=== PATIENT | male | born 1955 | race Caucasian/White ===

== ENCOUNTER 2019-09-21 07:27 | Outpatient (CLI) | payer MEDICAID, SELFPAY ==
--- NOTE | 2019-09-21 08:45 | USCV_ITS ---
Eugene Gutierrez Age: 63 Gender: M : 1955 Exam Date: 09/21/2019 07:56 Ordering Phys: Perla Hickey MD Technologist: Camilla Charles Exam Location: [facility] [place] Indication: SOB BP: 140 / 81 HR: 60 Rhythm: Sinus Technical Quality: Poor MEASUREMENTS (Male / Female) Normal Values 2D ECHO LV Diastolic Diameter PLAX 5.9 cm 4.2 - 5.9 / 3.9 - 5.3 cm LV Systolic Diameter PLAX 5.1 cm LV Chamber Size 7.3 cm IVS Diastolic Thickness 1.8 cm 0.6 - 1.0 / 0.6 - 0.9 cm IVS Systolic Thickness 1.8 cm LVPW Diastolic Thickness 1.0 cm 0.6 - 1.0 / 0.6 - 0.9 cm LVPW Systolic Thickness 1.3 cm RV Chamber Size 4.3 cm LVOT Diameter 2.0 cm LV Ejection Fraction 2D Teich 28.7 % LV Ejection Fraction MOD 2C -1.4 % LV Ejection Fraction 2C AL 6.2 % LA Diameter 6.5 cm LA Width 5.2 cm LA Height 7.8 cm RA Width 5.0 cm RA Height 6.1 cm Aorta at Sinotubular Diameter 3.3 cm M-MODE LV Diastolic Diameter MM 7.4 cm 4.2 - 5.9 / 3.9 - 5.3 cm LV Systolic Diameter MM 4.3 cm LV Ejection Fraction MM Teich 71.1 % IVS Diastolic Thickness MM 1.1 cm 0.6 - 1.0 / 0.6 - 0.9 cm IVS Systolic Thickness MM 1.6 cm LVPW Diastolic Thickness MM 0.9 cm 0.6 - 1.0 / 0.6 - 0.9 cm LVPW Systolic Thickness MM 1.2 cm RV Diastolic Diameter MM 2.7 cm Aortic Annulus Diameter 3.5 cm LA Ao Ratio MM 1.8 MV E Point Septal Separation 0.9 cm DOPPLER AV Peak Velocity 119.0 cm/s LVOT Peak Velocity 86.0 cm/s AV Area Cont Eq vti 2.1 cm squared AV Area Cont Eq pk 2.3 cm squared MV E' Velocity 12.0 cm/s TR Peak Velocity 212.8 cm/s TR Peak Gradient 18.1 mmHg TR Mean Velocity 166.6 cm/s TR Mean Gradient 11.6 mmHg TR Velocity Time Integral 75.7 cm TV Peak E Velocity 61.0 cm/s PV Peak Velocity 54.0 cm/s FINDINGS Left Ventricle The imaging is relatively poor. The ventricle appears to be mildly enlarged. There is no obvious evidence of left ventricular hypertrophy. There is global hypokinesis to a moderate degree. A rough estimate of the ejection fraction would be 35% or slightly higher. Grade 2 diastolic dysfunction. No obvious wall motion disturbances. Right Ventricle Normal right ventricular size and systolic function. Right Atrium Moderately increased right atrial size. Left Atrium Moderately increased left atrial size. Mitral Valve Structurally normal mitral valve. Mild-moderate mitral valve regurgitation. Aortic Valve Structurally normal trileaflet aortic valve. No aortic valve stenosis. Trace to mild aortic valve regurgitation. Tricuspid Valve Structurally normal tricuspid valve. Moderate tricuspid valve regurgitation. Pulmonic Valve Pulmonic valve not well visualized. [id number] pulmonary valve regurgitation. Pericardium Normal pericardium without effusion. Aorta Normal ascending aorta dimension. CONCLUSIONS The imaging is relatively poor. The ventricle appears to be mildly enlarged. There is no obvious evidence of left ventricular hypertrophy. There is global hypokinesis to a moderate degree. A rough estimate of the ejection fraction would be 35% or slightly higher. Grade 2 diastolic dysfunction. No obvious wall motion disturbances. Moderately increased right atrial size. Moderately increased left atrial size. Structurally normal mitral valve. Mild-moderate mitral valve regurgitation. Structurally normal trileaflet aortic valve. No aortic valve stenosis. Trace to mild aortic valve regurgitation. Comparison to the previous study is difficult due to the poor technical quality however the ejection fraction is probably slightly lower. Otherwise, there appears to be no change. The previous study was done 09/18/2017 Dr. Shahzad Beckman MD (Electronically Signed) Final Date: 21 September 2019 10:07 S
--- NOTE | 2019-09-21 13:23 | PFTS_ITS ---
Date of Study:09/21/19 Date of Dictation: MECHANICS: Forced vital capacity (FVC) is normal. Forced expiratory volume in one second (FEV1) is normal. FEV1/FVC is normal. FLOW VOLUME LOOP: Reduced flow at all lung volumes. LUNG VOLUMES: Total lung capacity (TLC) is normal. Residual volume (RV) is normal. DIFFUSING CAPACITY FOR CARBON MONOXIDE: Mildly reduced. INTERPRETATION: The pulmonary function tests are normal. There is no significant postbronchodilator response. Lung volumes are normal. Gas exchange (DLCO) is mildly reduced. MTDD
== END 2019-09-21 07:28 | disposition home or self-care (01) ==
LOC: US 07:28
PROVIDERS: PCP Family Medicine; Visit Provider Internal Medicine Critical Care Medicine
DX: R06.02 Shortness of breath (principal); J42 Unspecified chronic bronchitis; I08.0 Rheumatic disorders of both mitral and aortic valves
CPT/HCPCS: 93306; 94060; 94726; 94729; J7611

== ENCOUNTER 2019-11-08 17:04 | Emergency (ER) | payer MEDICAID, SELFPAY ==
[2019-11-08 17:17] VITALS: BMI 37.6
[2019-11-08 17:19] VITALS: BP 122/73; PULSE 46; RESP 16; TEMP 36.7; O2SAT 95
--- NOTE | 2019-11-08 17:27 | USCV_ITS ---
Eugene Gutierrez Age: 63 Gender: M : 1955 Exam Date: 11/08/2019 17:35 Ordering Phys: Patricia Toro DO Technologist: Iman Lazcano Exam Location: [facility] – [place], [place] Indication: SWOLLEN LT LOWER LEG HISTORY: Chronic swelling but now worse in lt lower leg PROCEDURES: Venous duplex imaging was performed in only the left lower extremity. The following venous structures were evaluated: common femoral vein, profunda vein, proximal portion of the greater saphenous vein, superficial femoral vein, and the popliteal vein. In addition, the posterior tibial and peroneal trunk were evaluated. Serial compression, augmentation maneuvers, and spectral Doppler flow evaluation were performed. FINDINGS: No DVT seen in any vessel examined CONCLUSIONS No evidence of DVT in the above-mentioned identifiable veins. Dr Jing Bueno MD [facility] (Electronically Signed) Final Date: 09 November 2019 08:41 S
== END 2019-11-08 20:35 | disposition left against medical advice (07) ==
LOC: ER 17:31
PROVIDERS: Emergency Provider Internal Medicine Cardiovascular Disease; PCP Family Medicine
DX: Z53.21 Procedure and treatment not carried out due to patient leaving prior to being seen by health care provider (principal)
CPT/HCPCS: 93971; 99281; 99282

== ENCOUNTER → 2019-12-24 07:19 | Outpatient (BNVA) | payer MEDICAID, SELFPAY | PROVIDERS: PCP Family Medicine; Visit Provider Internal Medicine | DX: Z20.828 Contact with and (suspected) exposure to other viral communicable diseases (principal) | CPT/HCPCS: 87635 ==

== ENCOUNTER 2019-12-27 06:44 | Outpatient (CLI) | payer MEDICARE, MEDICAID, SELFPAY ==
--- NOTE | 2019-12-27 06:54 | ECG_ITS ---
[facility] Test Date: 2019-12-27 Pat Name: Eugene Gutierrez Department: Room: Gender: Male [employer] Re[employer]: : 1955 Requested By: Raffaele Monroy Order Number: [id number] Colin MD: Raffaele Monroy M.D. Interpretive Statements NAME OF STUDY: LEXISCAN SESTAMIBI STRESS TEST INDICATION: [Chest Pain] Procedure: At the baseline the blood pressure was 145/96 mmHg, with a heart rate of 55 bpm. The electrocardiogram showed atrial fibrillation, left axis deviation with normal ST and T's. The Lexiscan was infused over the period Of 20 seconds. A total of 0.4 mg of Lexiscan was infused. The stress phase was continued for a total of 5 minutes. Heart rate at the end of stress phase was 61 bpm, with a blood pressure of 141/81 mmHg. The EKG at the peak infusion revealed atrial fibrillation with no significant ST-T wave changes. Sestamibi was injected 20 seconds after Lexiscan infusion. Blood pressure at the end of recovery phase was 137/76 mmHg, with a heart rate of 82 bpm. EKG showed atrial fibrillation without significant ST???T wave changes. Conclusion: 1. Normal EKG response to Lexiscan infusion. 2. No Lexiscan induced chest pain or cardiac arrhythmia. 3. Normal blood pressure and heart rate response. 4. Sestamibi/sestamibi perfusion scan pending; see separate report. Electronically Signed On 01-06-2020 19:56:53 CDT by Raffaele Monroy M.D. [id number]
--- NOTE | 2019-12-27 06:55 | NMCV_ITS ---
NM jeronimo perf SPECT r/s* [id number] Eugene Gutierrez Age: 63 Gender: M : 1955 Exam Date: 12/27/2019 07:56 Ordering Phys: Raffaele Monroy M.D ([email or web address]) Technologist: LEFTY rBown Exam Location: [facility] Indications: CHEST PAIN STRESS TEST [facility] IMAGE PROTOCOL Rest/Stress 1 Lexiscan Day Radiopharmaceutical Dose (mCi) Administration Site Administered by Rest: Tc-99m 10.9 IV LEFTY Horowitz Sestamibi Stress:Tc-99m 32.7 IV LEFTY Horowitz Sestamibi Rest: 27-Dec-2019 60 Discovery 630 Stress: 27-Dec-2019 30 Discovery 630 0.4mg Lexiscan. Images obtained in supine and prone position. SPECT RESULTS Technical Quality: Excellent Raw Data Analysis: Normal Image Corrections: Patient motion artifact - motion correction applied to rest images. Summed Stress Score: 14 Summed Rest Score: 16 Summed Difference Score: 0 PERFUSION FINDINGS Large in size, severe in intensity, fixed perfusion defect in inferior wall. There is a large fixed perfusion defect noted in apical, apical lateral, and lateral wall. FUNCTIONAL RESULTS (calculated via Gated SPECT) Stress Image LV EF (%): 48 Stress EDV (mL):257 TID: 1.08 Stress ESV (mL):134 FUNCTIONAL FINDINGS: LV systolic function is reduced with EF of 48% IMPRESSIONS 1. Abnormal myocardial perfusion with large ,fixed defects of inferior, apical and lateral becker. These defects represent prior infarcts. 2. No significant area of ischemia is noted. 3. LV systolic function is reduced. Raffaele Monroy MD (Electronically Signed) Final Date: 30 December 2019 19:09 S
[2019-12-27 07:13] VITALS: BMI 39.1
[2019-12-27] MEDS: regadenoson 0.4 Mg/5 ml Syringe IVP (08:36)
[2019-12-27 08:54] VITALS: BP 137/76; PULSE 62
== END 2019-12-27 06:45 | disposition home or self-care (01) ==
LOC: CDL 06:44
PROVIDERS: PCP Family Medicine; Visit Provider Internal Medicine
DX: R07.9 Chest pain, unspecified (principal)
CPT/HCPCS: 78452; 93017; A9500; J2785

== ENCOUNTER 2020-03-29 14:04 | Outpatient (CLI) | payer MEDICARE, MEDICAID, SELFPAY ==
--- NOTE | 2020-03-29 14:15 | USCV_ITS ---
Eugene Gutierrez Age: 64 Gender: M : 1955 Exam Date: 03/29/2020 14:27 Ordering Phys: Raffaele Monroy M.D ([email or web address]) Technologist: Holly Murphy [place] [facility] [place]: LLE Pain RIGHT LEFT Brachial 125.00 mmHg Brachial 123.00 mmHg Pressure (mmHg) Waveform Pressure (mmHg) Waveform 125.00 PICTURE COPYIST 124.00 153.00 DPA 111.00 1.38 Ankle/Brachial Index 0.99 91.00 Pre-Exercise Toe Pressure 62.00 0.73 Pre-Exercise Toe/Brachial Index 0.50 FINDINGS Normal MAGDY and TBI on the right side Normal MAGDY with a diminished MAGDY of 0.50 on the left side Normal segmental pressures. CONCLUSIONS 1. Features of mild peripheral artery disease on the left side 2. No significant arterial obstruction on the right side Dr Jing Bueno MD [facility] (Electronically Signed) Final Date: 29 March 2020 17:16 S
== END 2020-03-29 14:05 | disposition home or self-care (01) ==
LOC: RAD 14:10
PROVIDERS: PCP Family Medicine; Visit Provider Internal Medicine
DX: M79.662 Pain in left lower leg (principal); I73.9 Peripheral vascular disease, unspecified
CPT/HCPCS: 93922

== ENCOUNTER 2021-02-21 12:31 | Outpatient (CLI) | payer MEDICARE, MEDICAID, SELFPAY ==
--- NOTE | 2021-02-21 12:37 | USCV_ITS ---
Eugene Gutierrez Age: 65 Gender: M : 1955 Exam Date: 02/21/2021 12:36 Ordering Phys: Eugene Orozco XX Technologist: EFRAIN [place] [facility] [place]: PAIN IN LEGS RIGHT LEFT Brachial 145.00 mmHg Brachial 137.00 mmHg Pressure (mmHg) Waveform Pressure (mmHg) Waveform 138.00 TROLLEY CLEANER 95.00 185.00 DPA 102.00 128.00 Ankle/Brachial Index 0.77 1.00 Post-Exercise Ankle Brachial Index 0.77 78.00 Pre-Exercise Toe Pressure FINDINGS please see charts. ruthie Resting MAGDY 1.28 on the right side. Post exercise MAGDY was 1.05 Resting MAGDY on the left side of 0.7 with a post exercise MAGDY of 0.43 CONCLUSIONS 1. Features of possibly severe peripheral artery disease on the left side 2. No significant arterial obstruction on the right side Dr Jing Bueno MD [facility] (Electronically Signed) Final Date: 21 February 2021 14:22 S
== END 2021-02-21 12:32 | disposition home or self-care (01) ==
LOC: US 12:33
PROVIDERS: PCP Family Medicine; Visit Provider Family Medicine
DX: I73.9 Peripheral vascular disease, unspecified (principal); M79.604 Pain in right leg; M79.605 Pain in left leg
CPT/HCPCS: 93922

== ENCOUNTER → 2021-04-23 10:06 | Outpatient (BNVA) | payer MEDICARE, MEDICAID, SELFPAY | PROVIDERS: Visit Provider Family Medicine | DX: R63.5 Abnormal weight gain (principal); R53.83 Other fatigue; N50.89 Other specified disorders of the male genital organs; Z11.59 Encounter for screening for other viral diseases; Z11.4 Encounter for screening for human immunodeficiency virus [HIV]; Z12.5 Encounter for screening for malignant neoplasm of prostate; Z76.89 Persons encountering health services in other specified circumstances; G47.33 Obstructive sleep apnea (adult) (pediatric); I48.91 Unspecified atrial fibrillation; E11.9 Type 2 diabetes mellitus without complications; I50.9 Heart failure, unspecified | CPT/HCPCS: 80053; 80061; 83036; 84153; 84439; 84443; 85025; 86592; 86617 ==

== ENCOUNTER → 2021-05-21 09:24 | Outpatient (BNVA) | payer MEDICARE, MEDICAID, SELFPAY | PROVIDERS: Visit Provider Family Medicine | DX: Z11.59 Encounter for screening for other viral diseases (principal); Z11.4 Encounter for screening for human immunodeficiency virus [HIV]; E11.65 Type 2 diabetes mellitus with hyperglycemia | CPT/HCPCS: 85025; 86803; 87806 ==

== ENCOUNTER → 2021-06-12 08:06 | Outpatient (BNVA) | payer MEDICARE, MEDICAID, SELFPAY | PROVIDERS: Visit Provider Internal Medicine Critical Care Medicine | DX: J42 Unspecified chronic bronchitis (principal); G47.33 Obstructive sleep apnea (adult) (pediatric); I50.9 Heart failure, unspecified; Z87.891 Personal history of nicotine dependence; E78.5 Hyperlipidemia, unspecified; I27.20 Pulmonary hypertension, unspecified | CPT/HCPCS: 99214 ==

== ENCOUNTER → 2021-06-13 09:26 | Outpatient (BNVA) | payer MEDICARE, MEDICAID, SELFPAY | PROVIDERS: Visit Provider Internal Medicine | DX: I11.0 Hypertensive heart disease with heart failure (principal); I50.9 Heart failure, unspecified; I73.9 Peripheral vascular disease, unspecified | CPT/HCPCS: 99214 ==

== ENCOUNTER → 2021-12-15 08:22 | Outpatient (BNVA) | payer MEDICARE, MEDICAID, SELFPAY | PROVIDERS: Visit Provider Internal Medicine Critical Care Medicine | DX: J42 Unspecified chronic bronchitis (principal); R06.02 Shortness of breath; G47.33 Obstructive sleep apnea (adult) (pediatric); I50.30 Unspecified diastolic (congestive) heart failure; I25.5 Ischemic cardiomyopathy; Z87.891 Personal history of nicotine dependence | CPT/HCPCS: 99213; 99214 ==

== ENCOUNTER 2021-12-16 14:35 | Outpatient (CLI) | payer MEDICARE, MEDICAID, SELFPAY ==
[2021-12-16 16:09] LABS: Anion Gap 13.2 (5-19); Blood Urea Nitrogen 18 mg/dL (8-23); Calcium 9.4 mg/dL (8.5-10.5); Carbon Dioxide 29 mmol/L (22-29); Chloride 102 mmol/L (98-107); Glomerular Filtration Rate 84.4 mL/min (90-130); Glucose 116 mg/dL (65-115); NT Pro B Type Natriuretic Pept 1023 pg/mL (0-125); Osmolality Calculated 293 mOsm/kg (285-295); Potassium 4.2 mmol/L (3.5-5.1); Sodium 140 mmol/L (136-145)
== END 2021-12-16 14:36 | disposition home or self-care (01) ==
LOC: LAB 14:37
PROVIDERS: Visit Provider Internal Medicine
DX: I50.9 Heart failure, unspecified (principal); R06.02 Shortness of breath; R63.5 Abnormal weight gain
CPT/HCPCS: 80048; 83880

== ENCOUNTER → 2022-04-09 12:15 | Outpatient (BNVA) | payer MEDICARE, MEDICAID, SELFPAY | PROVIDERS: PCP Family Medicine; Visit Provider Internal Medicine | DX: I25.10 Atherosclerotic heart disease of native coronary artery without angina pectoris (principal); R42 Dizziness and giddiness; R22.42 Localized swelling, mass and lump, left lower limb; I73.9 Peripheral vascular disease, unspecified; G47.33 Obstructive sleep apnea (adult) (pediatric); I11.0 Hypertensive heart disease with heart failure; I50.9 Heart failure, unspecified; I27.20 Pulmonary hypertension, unspecified; E78.5 Hyperlipidemia, unspecified; E11.9 Type 2 diabetes mellitus without complications; Z79.84 Long term (current) use of oral hypoglycemic drugs; E66.9 Obesity, unspecified; Z68.38 Body mass index [BMI] 38.0-38.9, adult; I25.5 Ischemic cardiomyopathy; I48.91 Unspecified atrial fibrillation; Z87.891 Personal history of nicotine dependence | CPT/HCPCS: 99214 ==

== ENCOUNTER → 2022-07-13 14:13 | Outpatient (BNVA) | payer MEDICARE, MEDICAID, SELFPAY | PROVIDERS: PCP Family Medicine; Visit Provider Family Medicine | DX: E11.65 Type 2 diabetes mellitus with hyperglycemia (principal); I10 Essential (primary) hypertension; I50.9 Heart failure, unspecified; J44.9 Chronic obstructive pulmonary disease, unspecified; I48.91 Unspecified atrial fibrillation; Z12.5 Encounter for screening for malignant neoplasm of prostate | CPT/HCPCS: 80053; 80061; 83036; 84439; 84443; 85025; G0103 ==

== ENCOUNTER → 2022-09-28 14:32 | Outpatient (BNVA) | payer MEDICARE, MEDICAID, SELFPAY | PROVIDERS: PCP Family Medicine; Visit Provider Internal Medicine Pulmonary Disease | DX: I51.7 Cardiomegaly (principal); R06.02 Shortness of breath | CPT/HCPCS: 71046; 99214 ==

== ENCOUNTER → 2023-01-19 09:07 | Outpatient (BNVA) | payer MEDICARE, MEDICAID, SELFPAY | PROVIDERS: PCP Family Medicine; Visit Provider Family Medicine | DX: R60.0 Localized edema (principal); E87.6 Hypokalemia; T50.2X5A Adverse effect of carbonic-anhydrase inhibitors, benzothiadiazides and other diuretics, initial encounter; E11.65 Type 2 diabetes mellitus with hyperglycemia; E78.5 Hyperlipidemia, unspecified; E83.52 Hypercalcemia; I25.10 Atherosclerotic heart disease of native coronary artery without angina pectoris; I50.9 Heart failure, unspecified; I48.91 Unspecified atrial fibrillation; Z12.5 Encounter for screening for malignant neoplasm of prostate; E83.42 Hypomagnesemia; X58.XXXA Exposure to other specified factors, initial encounter | CPT/HCPCS: 80053; 80061; 82306; 83036; 83735; 84443; G0103 ==

== ENCOUNTER → 2023-03-31 10:12 | Outpatient (BNVA) | payer MEDICARE, MEDICAID, SELFPAY | PROVIDERS: PCP Family Medicine; Visit Provider Family Medicine | DX: E11.65 Type 2 diabetes mellitus with hyperglycemia (principal); E87.6 Hypokalemia; T50.2X5A Adverse effect of carbonic-anhydrase inhibitors, benzothiadiazides and other diuretics, initial encounter; I25.10 Atherosclerotic heart disease of native coronary artery without angina pectoris; I10 Essential (primary) hypertension; G62.9 Polyneuropathy, unspecified; J44.9 Chronic obstructive pulmonary disease, unspecified; I48.91 Unspecified atrial fibrillation; E78.5 Hyperlipidemia, unspecified; E83.42 Hypomagnesemia; E55.9 Vitamin D deficiency, unspecified; Z79.899 Other long term (current) drug therapy | CPT/HCPCS: 80053; 80061; 82306; 83036; 83735; 84443; 85025 ==

== ENCOUNTER → 2023-05-12 08:43 | Outpatient (BNVA) | payer MEDICARE, MEDICAID, SELFPAY | PROVIDERS: PCP Family Medicine; Visit Provider Family Medicine | DX: E87.6 Hypokalemia; T50.2X5A Adverse effect of carbonic-anhydrase inhibitors, benzothiadiazides and other diuretics, initial encounter; E83.42 Hypomagnesemia; S60.552A Superficial foreign body of left hand, initial encounter; W45.8XXA Other foreign body or object entering through skin, initial encounter | CPT/HCPCS: 73120; 80048; 83735 ==

== ENCOUNTER → 2023-07-16 07:43 | Outpatient (BNVA) | payer MEDICARE, MEDICAID, SELFPAY | PROVIDERS: PCP Family Medicine; Visit Provider Internal Medicine Pulmonary Disease | DX: J44.9 Chronic obstructive pulmonary disease, unspecified (principal); J43.2 Centrilobular emphysema; Z87.891 Personal history of nicotine dependence; G47.33 Obstructive sleep apnea (adult) (pediatric); I50.9 Heart failure, unspecified | CPT/HCPCS: 99214 ==

== ENCOUNTER → 2023-07-26 14:27 | Outpatient (BNVA) | payer MEDICARE, MEDICAID, SELFPAY | PROVIDERS: PCP Family Medicine; Visit Provider Family Medicine | DX: E11.65 Type 2 diabetes mellitus with hyperglycemia (principal); I10 Essential (primary) hypertension | CPT/HCPCS: 80053; 83036 ==

== ENCOUNTER → 2023-12-30 09:43 | Outpatient (BNVA) | payer MEDICARE, MEDICAID, SELFPAY | PROVIDERS: PCP Family Medicine; Visit Provider Family Medicine | DX: Z12.5 Encounter for screening for malignant neoplasm of prostate (principal); R07.9 Chest pain, unspecified; I10 Essential (primary) hypertension; E11.65 Type 2 diabetes mellitus with hyperglycemia; I48.0 Paroxysmal atrial fibrillation; E78.5 Hyperlipidemia, unspecified; Q25.46 Tortuous aortic arch; I51.7 Cardiomegaly; J84.10 Pulmonary fibrosis, unspecified | CPT/HCPCS: 71046; 80053; 80061; 82306; 82607; 83036; 83880; 85651; G0103 ==

== ENCOUNTER 2024-02-15 08:51 | Outpatient (CLI) | payer MEDICARE, MEDICAID, SELFPAY ==
--- NOTE | 2024-02-15 09:00 | CT_ITS ---
WS: [id number] LDCT LUNG CANCER SCREENING TECHNIQUE: Noncontrast CT of the chest with coronal and sagittal reformatted images. CLINICAL INFORMATION: lung CA screening COMPARISON: CT chest 2016 DLP: 125.21 mGy.cm DIvol: Mean CTDIvol: 2.60 (mGy) All CT scans at [facility] use at least one of these dose optimization techniques: automat ed exposure control; mA and/or kV adjustment per patient size (includes targeted exams where dose is matched to clinical indication); or iterative reconstruction. FINDINGS: Moderate chronic emphysematous changes. No acute pulmonary infiltrates. No suspicious pulmo nary parenchymal abnormalities. Cardiomegaly. Coronary calcification. Aortic calcification. No mediastinal or hilar lymphadenopathy. Small esophageal hiatal hernia. Adrenal glands are normal. Fatty atrophy of the pancreas. Mild thorac ic curve. Moderate spondylitic changes thoracic spine. Chronic rib fractures with callus formation. CT/CT lung screening [id number] IMPRESSION: LUNG-RADS: 2-Benign Appearance or Behavior FOLLOW UP: 12 Month: Continue annual screening with LDCT
== END 2024-02-15 08:52 | disposition home or self-care (01) ==
LOC: RAD 08:52
PROVIDERS: PCP Family Medicine; Visit Provider Family Medicine
DX: Z12.2 Encounter for screening for malignant neoplasm of respiratory organs (principal); Z72.0 Tobacco use; J43.9 Emphysema, unspecified; I25.84 Coronary atherosclerosis due to calcified coronary lesion; I70.0 Atherosclerosis of aorta; K44.9 Diaphragmatic hernia without obstruction or gangrene; K86.89 Other specified diseases of pancreas; M47.814 Spondylosis without myelopathy or radiculopathy, thoracic region
CPT/HCPCS: 71271

== ENCOUNTER → 2024-02-22 10:30 | Outpatient (BNVA) | payer MEDICARE, MEDICAID, SELFPAY | PROVIDERS: PCP Family Medicine; Visit Provider Family Medicine | DX: E11.65 Type 2 diabetes mellitus with hyperglycemia | CPT/HCPCS: 80048; 83036 ==